=== PATIENT | male | born 1965 | race Caucasian/White ===

== ENCOUNTER 2018-03-16 19:28 | Emergency (ER) | payer OTHER ==
[~2018-03-16] VITALS: Ht 175.3 cm; Wt 83.0 kg
[2018-03-16 19:56] VITALS: BP 128/90
--- NOTE | 2018-03-16 19:59 | ED GENERAL ADULT ---
History of Present Illness General Chief Complaint: General Adult Stated Complaint: "THE CLINIC THINKS I HAVE MENINGITIS" Source: patient Exam Limitations: no limitations Vital Signs & Intake/Output Vital Signs & Intake/Output Vital Signs Date Time Temp Pulse Resp B/P B/P Pulse O2 O2 Flow FiO2 Mean Ox Delivery Rate 03/167 Room Air 03/16 1956 97.3 73 18 128/90 98 Room Air ED Intake and Output 03/17 0000 03/16 1200 Intake Total Output Total Balance Patient 183 lb Weight Allergies Coded Allergies: NO KNOWN ALLERGIES (06/19/11) Triage Note: 53M SIB WALK IN FOR R/O MENINGITIS. PT REPORTS HE DEVELOPED DIARRHEA THIS MORNING AND FRONTAL HEADACHE AND NOW POSTERIOR NECK PAIN. NO OVERT NUCHAL RIGIDITY OBSERVED. AFEBRILE, NO DIAPHORESIS. STATES HE SUFFERS FROM MIGRAINES AND WAS UNABLE TO TAKE HIS MEDS DUE TO STOMACHACHE AND DIARRHEA. ALSO REPORTS GETTING NEW COUCH/FURNITURE WHICH IS WHAT HE ATTRIBUTES NECK PAIN TO. GENERALLY WELL APPEARING, AMBULATORY, AND ALERT Triage Nurses Notes Reviewed? yes Onset: Gradual HPI: 53 yo gentleman, h/o migraine headache presents with headache, diarrhea for several episodes sent in by clinic concerned about meningitis. Pt states he has had symptoms for 1-2 days, attributes his headache to his migraine. He has no nausea, vomiting, abdominal pain, chest pain, dyspnea. He is otherwise well. Past History Travel History Traveled to [place] past 21 day No Medical History Any Pertinent Medical History? see below for history Psychiatric: depression Surgical History Surgical History: non-contributory Psychosocial History Who do you live with Sister What is your primary language Indonesian Tobacco Use: Quit >30 days ago Family History Hx Contributory? No Review of Systems Review of Systems Constitutional: Reports: no symptoms. EENTM: Reports: no symptoms. Respiratory: Reports: no symptoms. Cardiovascular: Reports: no symptoms. GI: Reports: no symptoms. Genitourinary: Reports: no symptoms. Musculoskeletal: Reports: no symptoms. Skin: Reports: no symptoms. Neurological/Psychological: Reports: no symptoms. Hematologic/Endocrine: Reports: no symptoms. Immunologic/Allergic: Reports: no symptoms. All Other Systems: Reviewed and Negative Physical Exam Physical Exam General Appearance: well developed/nourished, no apparent distress, alert, comfortable Head: atraumatic, normal appearance Eyes: Bilateral: normal appearance. Ears, Nose, Throat: normal pharynx, normal ENT inspection Neck: normal inspection, supple, full range of motion, mild paracervical and trapezius muscle spasm and tenderness to palpation. Respiratory: normal breath sounds, chest non-tender, no respiratory distress, quiet respiration, lungs clear Cardiovascular: regular rate/rhythm Gastrointestinal: normal bowel sounds, soft, non-tender Back: normal inspection Extremities: normal inspection Neurologic/Psych: no motor/sensory deficits, awake, alert, oriented x 3 Skin: intact, normal color, warm/dry Comments: negative kernig's and brudzinski's sign Core Measures ACS in differential dx? No CVA/TIA Diagnosis: No Sepsis Present: No Sepsis Focused Exam Completed? No Progress Differential Diagnoses I considered the following diagnoses in my evaluation of the patient: virall syndrome, migraine vs other. Plan of Care: Orders Procedure Date/time Status COMPREHENSIVE METABOLIC PANEL 03/16 1939 Complete CBC WITHOUT DIFFERENTIAL 03/16 1939 Complete Laboratory Tests 03/16/182033: Anion Gap 13, Estimated GFR > 60, BUN/Creatinine Ratio 11.0, Glucose 103 H, Calcium 9.1, Total Bilirubin 0.7, AST 23, ALT 32, Alkaline Phosphatase 51, Total Protein 7.1, Albumin 4.3, Globulin 2.8, Albumin/Globulin Ratio 1.5, CBC w Diff NO MAN DIFF REQ, RBC 5.16, MCV 91.2, MCH 30.4, MCHC 33.3, RDW 13.2, MPV 8.1, Gran % 59.5, Lymphocytes % 30.2, Monocytes % 6.4, Eosinophils % 3.5, Basophils % 0.4, Absolute Granulocytes 5.2, Absolute Lymphocytes 2.7, Absolute Monocytes 0.6 , Absolute Eosinophils 0.3, Absolute Basophils 0 Initial ED EKG: none Departure Departure Disposition: HOME OR SELF CARE Condition: Stable Clinical Impression Primary Impression: Viral syndrome Secondary Impressions: Migraine headache Referrals: Salina Lamb MD (PCP/Family) Departure Forms: Customer Survey General Discharge Information Comments 03/16/18, 21:59....pt with benign labs, feeling better after ibuprofen... safe for discharge without warning signs of meningitis... close follow up advised. Critical Care Note Critical Care Note Critical Care Time: non-applicable
[2018-03-16 20:57] LABS: ABSOLUTE BASOPHIL COUNT 0 /CUMM (0.0-0.2); ABSOLUTE EOSINOPHIL COUNT 0.3 /CUMM (0.0-0.7); ABSOLUTE GRANULOCYTE CT 5.2 /CUMM (1.4-6.5); ABSOLUTE LYMPH COUNT 2.7 /CUMM (1.2-3.4); ABSOLUTE MONOCYTE COUNT 0.6 /CUMM (0.10-0.60); BASOPHIL % 0.4 % (0.0-2.0); EOSINOPHIL % 3.5 % (0-5); GRANULOCYTE % 59.5 % (42.2-75.2); HEMATOCRIT 47.1 % (42-52); MEAN CORPUSCULAR HGB 30.4 PG (27.0-31.0); MEAN CORPUSCULAR HGB CONC 33.3 G/DL (33.0-37.0); MEAN CORPUSCULAR VOLUME 91.2 FL (80.0-94.0); MEAN PLATELET VOLUME 8.1 FL (7.4-10.4); PLATELET COUNT 254 /CUMM (130-400); RBC DISTRIBUTION WIDTH 13.2 % (11.5-14.5); RED BLOOD CELL CT 5.16 /CUMM (4.70-6.10); WHITE BLOOD CELL COUNT 8.8 /CUMM (4.8-10.8)
[2018-03-16] MEDS ORDERED: TYLENOL WITH C1 EACH PO (22:22)
== END 2018-03-16 21:45 ==
LOC: ERH 19:28
PROVIDERS: Pediatrics
DX: B34.9 Viral infection, unspecified (principal); G43.909 Migraine, unspecified, not intractable, without status migrainosus; R19.7 Diarrhea, unspecified